=== PATIENT | male | born 1980 | race Hispanic/Latino ===

== ENCOUNTER → 2018-09-28 | Day surgery (SDC) | payer MEDICARE ==
[~2018-09-28] MED LIST: FENTANYL CITRATE/PF 100MCG/2 ML INJ ONE; MIDAZOLAM HCL 2 MG/2 ML VIAL ONE; PROPOFOL IV EMULSION 10 MG/ML 50 ML VIAL ONE; TRIUMEQ PO
--- OUTSIDE RECORDS SUMMARY | 2018-09-28 06:39 | XMS REPORT ---
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 Conditions or Problems Problem Name Problem Code Onset Date Status Entry Date Provider Comment Standard Description Annotate Hyperglycemia 790.29 Active Raya Elias MD Other abnormal glucose Shortness of breath 786.05 Active Raya Elias MD Shortness of breath Rectal bleeding 569.3 Active Raya Elias MD Hemorrhage of rectum and anus Sexual activity, high risk V69.2 Active Raya Elias MD High-risk sexual behavior Wart 078.10 Active Raya Elias MD Viral warts, unspecified Genital herpes 054.10 Active Raya Elias MD Genital herpes, unspecified Immunization update V15.9 Active Raya Elias MD Unspecified personal history presenting hazards to health SCREENING EXAMINATION FOR VENEREAL DISEASE V74.5 Active 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[employer] Screening examination for venereal disease HIV infection 042 Active Raya Elias MD Human immunodeficiency virus [HIV] disease Syphilis 097.9 Active 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[employer]INEER-C Syphilis, unspecified Tobacco user 305.1 Active Raya Elias MD Tobacco use disorder Allergic rhinitis ICD-477.9 Inactive Raya Elias MD Anemia ICD-285.9 Inactive Raya Elias MD Thrombocytopenia ICD-287.5 Inactive Raya Elias MD Thrush ICD-112.0 Inactive Raya Elias MD AIDS 042 Inactive 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[employer]INEER-C Human immunodeficiency virus [HIV] disease Allergic rhinitis 477.9 Resolved Raya Elias MD Allergic rhinitis, cause unspecified Anemia 285.9 Resolved Raya Elias MD Anemia, unspecified Thrombocytopenia 287.5 Resolved Raya Elias MD Thrombocytopenia, unspecified Thrush 112.0 Resolved Raya Elias MD Candidiasis of mouth Medication List Medication Instructions Start Date Stop Date Generic Name NDC Status Provider Patient Instruction PROAIR HFA 108 (90 BASE) MCG/ACT INHALATION AEROSOL SOLUTION 2 puffs every 4 - 6 hours as needed ALBUTEROL SULFATE 53367061068 Active Raya Elias MD Active ANUSOL-HC 2.5 % RECTAL CREAM apply rectally twice a day/3 times a day as needed HYDROCORTISONE (RECTAL) 01021820874 Active Raya Elias MD Active TRIUMEQ 600-50-300 MG ORAL TABLET One tablet daily with or without food [id number] Active Raya Elias MD Active ALDARA 5 % EXTERNAL CREAM Apply to affected areas three times a week before bedtime and wash off in morning. ALDARA 5 % EXTERNAL CREAM 811534 IMIQUIMOD Inactive CETIRIZINE HCL 10 MG ORAL TABLET Take 1 tablet orally once daily as needed. CETIRIZINE HCL 10 MG ORAL TABLET 7119153 CETIRIZINE HCL Inactive DOXYCYCLINE HYCLATE 100 MG ORAL CAPSULE 1 by mouth twice a day DOXYCYCLINE HYCLATE 100 MG ORAL CAPSULE 7230045 DOXYCYCLINE HYCLATE Inactive MEPRON 750 MG/5ML ORAL SUSPENSION Take 10ml once daily MEPRON 750 MG/5ML ORAL SUSPENSION 332976 ATOVAQUONE Inactive VALTREX 1 GM ORAL TABLET 1 by mouth 2 times a day for 7 days VALTREX 1 GM ORAL TABLET 792002 VALACYCLOVIR HCL Inactive FLUCONAZOLE 200 MG ORAL TABLET 1 By Mouth once a day FLUCONAZOLE 200 MG ORAL TABLET 030666 FLUCONAZOLE Inactive AZITHROMYCIN 600 MG ORAL TABLET 2 tabs by mouth once per week AZITHROMYCIN 600 MG ORAL TABLET 048426 AZITHROMYCIN Inactive DOXYCYCLINE HYCLATE 100 MG ORAL CAPSULE Take one capsule by mouth every 12 hours DOXYCYCLINE HYCLATE 100 MG ORAL CAPSULE 4802845 DOXYCYCLINE HYCLATE Inactive BACTRIM DS 800-160 MG ORAL TABLET Take one tablet by mouth once daily BACTRIM DS 800-160 MG ORAL TABLET 240791 SULFAMETHOXAZOLE-TRIMETHOPRIM Inactive ALDARA 5 % EXTERNAL CREAM Apply to affected areas three times a week before bedtime and wash off in morning. IMIQUIMOD [id number] No Longer Active Raya Elias MD Active CETIRIZINE HCL 10 MG ORAL TABLET Take 1 tablet orally once daily as needed. CETIRIZINE HCL 60005141756 No Longer Active Raya Elias MD Active DOXYCYCLINE HYCLATE 100 MG ORAL CAPSULE 1 by mouth twice a day DOXYCYCLINE HYCLATE 57349744334 No Longer Active Raya Elias MD Active MEPRON 750 MG/5ML ORAL SUSPENSION Take 10ml once daily ATOVAQUONE 34596793010 No Longer Active Raya Elias MD Active VALTREX 1 GM ORAL TABLET 1 by mouth 2 times a day for 7 days VALACYCLOVIR HCL 95318077988 No Longer Active Raya Elias MD Active FLUCONAZOLE 200 MG ORAL TABLET 1 By Mouth once a day FLUCONAZOLE 31324839121 No Longer Active Raya Elias MD Active AZITHROMYCIN 600 MG ORAL TABLET 2 tabs by mouth once per week AZITHROMYCIN 41929273487 No Longer Active Raya Elias MD Active DOXYCYCLINE HYCLATE 100 MG ORAL CAPSULE Take one capsule by mouth every 12 hours DOXYCYCLINE HYCLATE 53234720896 No Longer Active Raya Elias MD Active BACTRIM DS 800-160 MG ORAL TABLET Take one tablet by mouth once daily SULFAMETHOXAZOLE-TRIMETHOPRIM 78268838113 No Longer Active Raya Elias MD Active Immunizations Vaccine Administration Date Value Standard Description influenza immunization (Flu Vax) has been administered given influenza virus vaccine, unspecified formulation PEDIATRIC PNEUMOCOCCAL VACCINE ([id number]) #1 given pneumococcal conjugate vaccine, 13 valent Tetanus toxoid, reduced diphtheria toxoid and acellular Pertussis vaccine, absorbed (TdaP) given given tetanus toxoid, reduced diphtheria toxoid, and acellular pertussis vaccine, adsorbed influenza immunization (Flu Vax) has been administered given influenza virus vaccine, unspecified formulation influenza immunization (Flu Vax) has been administered given influenza virus vaccine, unspecified formulation Vital Signs Date Name Value Unit Range Description blood pressure, diastolic 76 mm[Hg] BP saeed blood pressure, systolic 129 mm[Hg] BP sys height E&M 68 [in_us] Bdy height pulse rate E&M 62 /min Heart rate temperature E&M 98.2 [degF] Body temperature weight E&M 177 [lb_av] Weight Measured blood pressure, diastolic 81 mm[Hg] BP saeed blood pressure, systolic 129 mm[Hg] BP sys height E&M 68 [in_us] Bdy height pulse rate E&M 63 /min Heart rate temperature E&M 97.5 [degF] Body temperature weight E&M 173.38 [lb_av] Weight Measured Diagnostic Results Date Name Value Unit Range Description Lab Report: LIPID PANEL, STANDARD, COMPREHENSIVE METABOLIC PANEL, LYMPHO ... - Chemistry cholesterol, non-HDL, total 105 MG/DL (CALC) mg/dL <130 Lab Report: CBC With Differential/Platelet, Comp. Metabolic Panel (14), ... - Chemistry very low density lipoproteins 74 mg/dL 5-40 Lab Report: CD4/CD8 Ratio Profile, Comp. Metabolic Panel (14), Lipid Aranda ... - Chemistry hepatitis B surface antigen Negative Negative Lab Report: HIV 1 RNA, QUANTITATIVE REAL TIME PCR - Chemistry HIV-1 RNA (log 10) <1.30 DETECTED Log copies/mL NOT DETECTED Lab Report: CD4/CD8 Ratio Profile, Comp. Metabolic Panel (14), RNA, Real ... - Chemistry chloride, serum 104 mmol/L 96-106 Lab Report: CD4/CD8 Ratio Profile, Comp. Metabolic Panel (14), Lipid Aranda ... - Microbiology hepatitis A antibody, total Positive Negative Lab Report: CD4/CD8 Ratio Profile, Comp. Metabolic Panel (14), RNA, Real ... - Chemistry urea nitrogen, blood 16 mg/dL 6-20 Lab Report: COMPREHENSIVE METABOLIC PANEL, LYMPHOCYTE SUBSET PANEL 4, CB ... - Hematology Absolute Eosinophil count 162 {Cells}/uL 15-500 Lab Report: QUANTIFERON(R)-TB GOLD - Hematology Quantiferon Gold TB blood test for tuberculosis screening NEGATIVE NEGATIVE Lab Report: CBC With Differential/Platelet, Hemoglobin A1c - Hematology mean corpuscular hemoglobin concentration, RBC 32.0 G/DL % 31.5-35.7 erythrocyte (RBC) count 4.07 X10E6/UL 10*6/mm3 4.14-5.80 Lab Report: LIPID PANEL, STANDARD, COMPREHENSIVE METABOLIC PANEL, LYMPHO ... - Chemistry cholesterol/HDL ratio, serum, percent 3.7 (calc) <5.0 Lab Report: LIPID PANEL, STANDARD, COMPREHENSIVE METABOLIC PANEL, LYMPHO ... - Serology hepatitis C antibody, serum NON-REACTIVE NON-REACTIVE Lab Report: CD4/CD8 Ratio Profile, Comp. Metabolic Panel (14), RNA, Real ... - Chemistry absolute CD8 644 [id number] Lab Report: CBC With Differential/Platelet, Hemoglobin A1c - Chemistry Absolute Neutrophils 3.4 X10E3/UL 10*3/uL 1.4-7.0 Lab Report: COMPREHENSIVE METABOLIC PANEL, LYMPHOCYTE SUBSET PANEL 4, CB ... - Hematology mean platelet volume 11.1 fL 7.5-12.5 Lab Report: LIPID PANEL, STANDARD, COMPREHENSIVE METABOLIC PANEL, LYMPHO ... - Chemistry LDL cholesterol, serum 83 MG/DL (CALC) mg/dL Lab Report: CD4/CD8 Ratio Profile, Comp. Metabolic Panel (14), RNA, Real ... - Chemistry urea nitrogen/creatinine ratio, serum 16 9-20 Lab Report: CBC With Differential/Platelet, Hemoglobin A1c - Hematology mean corpuscular volume, RBC 78 fL 79-97 Lab Report: LIPID PANEL, STANDARD, COMPREHENSIVE METABOLIC PANEL, LYMPHO ... - Chemistry HDL cholesterol, serum 39 mg/dL >40 Lab Report: CBC With Differential/Platelet, Hemoglobin A1c - Hematology monocytes as percent of blood leukocytes 10 % Not Estab. Lab Report: CD4/CD8 Ratio Profile, Comp. Metabolic Panel (14), RNA, Real ... - Chemistry creatinine, serum 0.97 mg/dL 0.76-1.27 albumin/globulin ratio, serum 1.3 1.2-2.2 Lab Report: COMPREHENSIVE METABOLIC PANEL, LYMPHOCYTE SUBSET PANEL 4, CB ... - Hematology Absolute Monocyte count 685 {Cells}/uL 200-950 Lab Report: LIPID PANEL, STANDARD, COMPREHENSIVE METABOLIC PANEL, LYMPHO ... - Chemistry cholesterol, serum 144 mg/dL <200 Lab Report: CD4/CD8 Ratio Profile, Comp. Metabolic Panel (14), RNA, Real ... - Chemistry bilirubin, serum, total <0.2 mg/dL mg/dL 0.0-1.2 Lab Report: CBC With Differential/Platelet, Hemoglobin A1c - Hematology Eosinophil Absolute Count 0.1 X10E3/UL 10*3/uL 0.0-0.4 Lab Report: Chlamydia/GC Amplification - Lab chlamydia DNA probe Negative Negative Lab Report: CD4/CD8 Ratio Profile, Comp. Metabolic Panel (14), RNA, Real ... - Chemistry aspartate aminotransferase (SGOT), serum 12 U/L 0-40 Lab Report: CBC With Differential/Platelet, Hemoglobin A1c - Hematology red blood cell distribution width 16.6 % 12.3-15.4 Lab Report: HSV Culture and Typing - Microbiology HERPES SIMPLEX VIRUS IDENTIFIED (PT; XXX; QL; ) HSVN Lab Report: COMPREHENSIVE METABOLIC PANEL, LYMPHOCYTE SUBSET PANEL 4, CB ... - Chemistry globulins, serum, total 3.1 G/DL (CALC) g/dL 1.9-3.7 Lab Report: CBC With Differential/Platelet, Hemoglobin A1c - Hematology leukocyte count, blood 6.6 X10E3/UL 10*3/mm3 3.4-10.8 Lab Report: CD4/CD8 Ratio Profile, Comp. Metabolic Panel (14), RNA, Real ... - Chemistry potassium, serum 4.4 mmol/L 3.5-5.2 Lab Report: CBC With Differential/Platelet, Hemoglobin A1c - Chemistry immature granulocytes, percentage of total cells, blood 0 % Not Estab. Lab Report: CD4/CD8 Ratio Profile, Comp. Metabolic Panel (14), RNA, Real ... - Chemistry albumin, serum 3.9 g/dL 3.5-5.5 Lab Report: Ct/GC GLORIA, Rectal, Ct/GC GLORIA, Pharyngeal - Microbiology Neisseria gonorrhoeae, throat culture Negative Negative Lab Report: CBC With Differential/Platelet, Hemoglobin A1c - Hematology lymphocyte count, blood, automated 2.5 X10E3/UL 10*3/mm3 0.7-3.1 hematocrit, blood 31.6 % 37.5-51.0 Lab Report: Chlamydia/GC Amplification - Microbiology Neisseria gonorrhoeae DNA probe Negative Negative Lab Report: CD4/CD8 Ratio Profile, Comp. Metabolic Panel (14), RNA, Real ... - Chemistry sodium, serum 139 mmol/L 134-144 Lab Report: CBC With Differential/Platelet, Hemoglobin A1c - Hematology neutrophils as percent of blood leukocytes 52 % Not Estab. basophils as percent of blood leukocytes 0 % Not Estab. Lab Report: CD4/CD8 Ratio Profile, Comp. Metabolic Panel (14), RNA, Real ... - Serology HIV-1RNA, serum, by PCR, quantitative <20 copies/mL {Copies}/mL rapid plasma reagin antibody, serum 1:8 NonRea<1:1 Lab Report: CD4/CD8 Ratio Profile, Comp. Metabolic Panel (14), RNA, Real ... - Chemistry CD4/CD8 ratio 0.65 0.92-3.72 carbon dioxide, venous blood 22 mmol/L 20-29 Lab Report: COMPREHENSIVE METABOLIC PANEL, LYMPHOCYTE SUBSET PANEL 4, CB ... - Chemistry Absolute Neutrophil count 4112 {Cells}/uL 7559-4473 Lab Report: CD4/CD8 Ratio Profile, Comp. Metabolic Panel (14), Lipid Aranda ... - Serology hepatitis B core antibody, total Negative Negative Lab Report: LIPID PANEL, STANDARD, COMPREHENSIVE METABOLIC PANEL, LYMPHO ... - Chemistry triglyceride, serum, fasting 119 mg/dL <150 Lab Report: CD4/CD8 Ratio Profile, Comp. Metabolic Panel (14), RNA, Real ... - Chemistry calcium, serum 8.5 mg/dL 8.7-10.2 alanine aminotransferase (SGPT), serum 11 U/L 0-44 Lab Report: CBC With Differential/Platelet, Hemoglobin A1c - Hematology mean corpuscular hemoglobin, RBC 24.8 pg 26.6-33.0 Lab Report: CD4/CD8 Ratio Profile, Comp. Metabolic Panel (14), RNA, Real ... - Chemistry protein, total, serum 6.8 g/dL 6.0-8.5 Lab Report: CD4/CD8 Ratio Profile, Comp. Metabolic Panel (14), RNA, Real ... - Lab Treponema pallidum antibodies, by particle agglutination Positive Negative Lab Report: CD4/CD8 Ratio Profile, Comp. Metabolic Panel (14), RNA, Real ... - Chemistry alkaline phosphatase, serum 70 U/L 39-117 Lab Report: CD4/CD8 Ratio Profile, Comp. Metabolic Panel (14), RNA, Real ... - Hematology T-helper cells (CD4) as percent of blood lymphocytes 24.5 % 30.8-58.5 Lab Report: CBC With Differential/Platelet, Hemoglobin A1c - Hematology hemoglobin, blood 10.1 g/dL 13.0-17.7 Lab Report: CD4/CD8 Ratio Profile, Comp. Metabolic Panel (14), RNA, Real ... - Hematology T-suppressor cells (CD8) as percent of blood lymphocytes 37.9 % 12.0-35.5 Lab Report: CBC With Differential/Platelet, Hemoglobin A1c - Hematology lymphocytes as percent of blood leukocytes 37 % Not Estab. Lab Report: CBC With Differential/Platelet, Hemoglobin A1c - Chemistry hemoglobin A1C, blood, as % of total hemoglobin 5.5 % 4.8-5.6 Lab Report: COMPREHENSIVE METABOLIC PANEL, LYMPHOCYTE SUBSET PANEL 4, CB ... - Hematology eosinophils as percent of blood leukocytes 2.1 % Lab Report: CD4/CD8 Ratio Profile, Comp. Metabolic Panel (14), RNA, Real ... - Genetics/fertility eGFR if 115 mL/min/1.73m2 >59 Lab Report: CBC With Differential/Platelet, Hemoglobin A1c - Hematology basophil count, absolute 0.0 x10E3/uL 0.0-0.2 Lab Report: LIPID PANEL, STANDARD, COMPREHENSIVE METABOLIC PANEL, LYMPHO ... - Lab Hepatitis C Antibody, Signal to Cut-Off 0.08 <1.00 Lab Report: Ct/GC GLORIA, Rectal, Ct/GC GLORIA, Pharyngeal - Basic GC Rectum Negative Negative Lab Report: CD4/CD8 Ratio Profile, Comp. Metabolic Panel (14), RNA, Real ... - Chemistry globulin, serum 2.9 1.5-4.5 Estimated Glomerular Filtration Rate (calc) 99 mL/min/1.73m2 >59 Lab Report: COMPREHENSIVE METABOLIC PANEL, LYMPHOCYTE SUBSET PANEL 4, CB ... - Chemistry lymphocytes, absolute 2718 CELLS/UL 10*3/uL 850-3900 Lab Report: CD4/CD8 Ratio Profile, Comp. Metabolic Panel (14), Lipid Aranda ... - Serology hepatitis B surface antibody Reactive Lab Report: CBC With Differential/Platelet, Hemoglobin A1c - Hematology eosinophils as percent of blood leukocytes 1 % Not Estab. Lab Report: CD4/CD8 Ratio Profile, Comp. Metabolic Panel (14), RNA, Real ... - Chemistry blood glucose, random 158 mg/dL 65-99 Lab Report: COMPREHENSIVE METABOLIC PANEL, LYMPHOCYTE SUBSET PANEL 4, CB ... - Serology Treponema pallidum Ab, serum REACTIVE NON-REACTIVE Lab Report: CBC With Differential/Platelet, Hemoglobin A1c - Hematology monocyte count, blood, automated 0.7 X10E3/UL 10*3/uL 0.1-0.9 Lab Report: CD4/CD8 Ratio Profile, Comp. Metabolic Panel (14), RNA, Real ... 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 Detailed - [id number] Raya Elias MD CPT-11938 [facility] 10:47:08 CDT Est Patient Detailed - 47114 Raya Elias MD CPT-60079 [facility] 14:13:08 CDT Est Patient Detailed - 18417 Raya Elias MD CPT-49278 [facility] 11:07:41 CDT Est Patient Exp Problem - 30261 Raya Elias MD CPT-08828 [facility] 14:48:57 CDT Est Patient Problem Focus - 45225 Raya Elias MD CPT-60891 [facility] 08:23:47 CDT Est Patient Detailed - 27888 Raya Elias MD CPT-57106 [facility] 08:33:54 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 Est Patient Detailed - 05374 Raya Elias MD CPT-92049 [facility] 14:27:53 SEMI TRUCK DRIVER Est Patient Detailed - 78416 Raya Elias MD CPT-33975 [facility] 11:27:07 CDT Est Patient Detailed - 56281 Raya Elias MD CPT-97182 [facility] 08:49:53 CDT Est Patient Detailed - 99433 Raya Elias MD CPT-50040 [facility] 12:25:15 CDT Est Patient Detailed - 14414 Raya Elias MD CPT-07267 [facility] 15:15:06 CDT New Patient Detailed - 54098 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
--- OUTSIDE RECORDS SUMMARY | 2018-09-28 06:39 | XMS REPORT ---
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 Allergies, Adverse Reactions, Alerts Allergy Name Allergy Type Status Severity Reaction(s) Onset Date Inactive Date Treating Clinician Comments amoxicillin trihydrate DA Active SV 2018-08-04 00:00:00 potassium clavulanate DA Active SV 2018-08-04 00:00:00 amoxicillin trihydrate DA Active SV 2016-08-16 00:00:00 potassium clavulanate DA Active SV 2016-08-16 00:00:00 Medications This patient has no known medications. Results Test Description Test Time Test Comments Text Results Atomic Results Result Comments URINALYSIS COMPLETE 2018-08-04 20:45:00 UA COLOR (test code=COLU) YELLOW YELLOW UA APPEARANCE (test code=APPU) CLEAR CLEAR UA GLUCOSE DIPSTICK (test code=DGLUU) NEGATIVE mg/dL NEGATIVE UA BILIRUBIN DIPSTICK (test code=BILU) NEGATIVE mg/dL NEGATIVE UA KETONE DIPSTICK (test code=KETU) 5 (Trace) mg/dL NEGATIVE UA SPECIFIC GRAVITY (test code=SGU) 1.032 1.001-1.035 UA BLOOD DIPSTICK (test code=MOLLY) Negative NEGATIVE UA PH DIPSTICK (test code=BETTY) 5.0 5.0-8.0 UA PROTEIN DIPSTICK (test code=PROU) Negative mg/dL NEGATIVE UA UROBILINIOGEN DIPSTICK (test code=URO) 1 mg/dL (1+) mg/dL 0.0-0.2 UA NITRITE DIPSTICK (test code=CHOLO) NEGATIVE NEGATIVE UA LEUKOCYTE ESTERASE W REFLEX (test code=LEUUR) TRACE NEGATIVE UA WBC (test code=WBCU) 0-5 #/HPF 0-5 UA RBC (test code=RBCU) 0-2 #/HPF 0-5 Urine Source? Clean CatchBASIC METABOLIC [id number] 19:16:00* Test Item Value Reference Range Comments SODIUM (test code=NA) 142 mmol/L 136-145 POTASSIUM (test code=K) 3.8 mmol/L 3.5-5.1 CHLORIDE (test code=CL) 111.0 mmol/L 98-107 CARBON DIOXIDE (test code=CO2) 22.0 mmol/L 21-32 ANION GAP (test code=GAP) 12.8 10-20 GLUCOSE (test code=GLU) 112 mg/dL 74-106 BLOOD UREA NITROGEN (test code=BUN) 16 mg/dL 7-18 GLOMERULAR FILTRATION RATE (test code=GFR) > 60 mL/min >=60 Estimated GFR by using Modified MDRD formula.Chronic kidney disease is defined as either kidney damageor GFR <60 mL/min/1.73 m2 for >3 months. CREATININE (test code=CREAT) 1.20 mg/dL 0.7-1.3 BUN/CREATININE RATIO (test code=BUN/CREA) 13.8 10-20 CALCIUM (test code=CA) 8.4 mg/dL 8.5-10.1 HEPATIC FUNCTION [id number] 19:16:00* Test Item Value Reference Range Comments TOTAL PROTEIN (test code=PROT) 7.8 gram/dL 6.4-8.2 ALBUMIN (test code=ALB) 3.7 g/dL 3.4-5.0 GLOBULIN (test code=GLOB) 4.1 gram/dL 2.7-4.2 ALBUMIN/GLOBULIN RATIO (test code=A/G) 0.9 0.75-1.50 BILIRUBIN TOTAL (test code=BILT) 0.20 mg/dL 0.0-1.0 BILIRUBIN DIRECT (test code=BILD) 0.05 mg/dL 0.0-0.20 SGOT/AST (test code=AST) 22 IUnit/L 15-37 SGPT/ALT (test code=ALT) 34 IUnit/L 12-78 ALKALINE PHOSPHATASE TOTAL (test code=ALKP) 93 IUnit/L 45-117 Note change in reference range due to change in reagent. [id number] 19:16:00* Test Item Value Reference Range Comments LIPASE (test code=LIP) 114 U/L 73.0-393.0 BASIC METABOLIC [id number] 19:07:00* Test Item Value Reference Range Comments SODIUM (test code=NA) 142 mmol/L 136-145 POTASSIUM (test code=K) 3.8 mmol/L 3.5-5.1 CHLORIDE (test code=CL) 111.0 mmol/L 98-107 CARBON DIOXIDE (test code=CO2) mmol/L 21-32 ANION GAP (test code=GAP) 10-20 GLUCOSE (test code=GLU) mg/dL 74-106 BLOOD UREA NITROGEN (test code=BUN) mg/dL 7-18 GLOMERULAR FILTRATION RATE (test code=GFR) mL/min >=60 CREATININE (test code=CREAT) mg/dL 0.7-1.3 BUN/CREATININE RATIO (test code=BUN/CREA) 10-20 CALCIUM (test code=CA) mg/dL 8.5-10.1 HEPATIC FUNCTION [id number] 19:07:00* Test Item Value Reference Range Comments TOTAL PROTEIN (test code=PROT) gram/dL 6.4-8.2 ALBUMIN (test code=ALB) g/dL 3.4-5.0 GLOBULIN (test code=GLOB) gram/dL 2.7-4.2 ALBUMIN/GLOBULIN RATIO (test code=A/G) 0.75-1.50 BILIRUBIN TOTAL (test code=BILT) mg/dL 0.0-1.0 BILIRUBIN DIRECT (test code=BILD) mg/dL 0.0-0.20 SGOT/AST (test code=AST) IUnit/L 15-37 SGPT/ALT (test code=ALT) IUnit/L 12-78 ALKALINE PHOSPHATASE TOTAL (test code=ALKP) IUnit/L 45-117 [id number] 19:07:00* Test Item Value Reference Range Comments LIPASE (test code=LIP) U/L 73.0-393.0 CBC W/O [id number] 18:53:00* Test Item Value Reference Range Comments WHITE BLOOD CELL (test code=WBC) 8.3 K/mm3 4.5-12.5 RED BLOOD CELL (test code=RBC) 4.95 mill/mm3 4.0-5.8 HEMOGLOBIN (test code=HGB) 14.7 gram/dL 13.0-17.5 HEMATOCRIT (test code=HCT) 44.7 % 42.0-52.0 MEAN CELL VOLUME (test code=MCV) 90.3 fL 80-98 MEAN CELL HGB (test code=MCH) 29.7 picogram 27.0-33.0 MEAN CELL HGB CONCETRATION (test code=MCHC) 32.9 gram/dL 33.0-36.0 RED CELL DISTRIBUTION WIDTH (test code=RDW) 13.2 % 11.6-16.2 PLATELET COUNT (test code=PLT) 176 K/mm3 150-450 MEAN PLATELET VOLUME (test code=MPV) 10.2 fL 6.7-11.0 CBC W/O [id number] 18:52:00* Test Item Value Reference Range Comments WHITE BLOOD CELL (test code=WBC) K/mm3 4.5-12.5 RED BLOOD CELL (test code=RBC) mill/mm3 4.0-5.8 HEMOGLOBIN (test code=HGB) 14.7 gram/dL 13.0-17.5 HEMATOCRIT (test code=HCT) 44.7 % 42.0-52.0 MEAN CELL VOLUME (test code=MCV) fL 80-98 MEAN CELL HGB (test code=MCH) picogram 27.0-33.0 MEAN CELL HGB CONCETRATION (test code=MCHC) gram/dL 33.0-36.0 RED CELL DISTRIBUTION WIDTH (test code=RDW) % 11.6-16.2 PLATELET COUNT (test code=PLT) K/mm3 150-450 MEAN PLATELET VOLUME (test code=MPV) fL 6.7-11.0
[2018-09-28 10:00] VITALS: BP 109/72
== END | disposition home or self-care (01) ==
LOC: OR 06:37
PROVIDERS: ATTEND Internal Medicine Gastroenterology
DX: K92.1 Melena (principal); K64.8 Other hemorrhoids; Z71.3 Dietary counseling and surveillance; E66.3 Overweight; Z21 Asymptomatic human immunodeficiency virus [HIV] infection status; J45.909 Unspecified asthma, uncomplicated; F17.200 Nicotine dependence, unspecified, uncomplicated; Z88.0 Allergy status to penicillin; Z68.27 Body mass index [BMI] 27.0-27.9, adult
CPT/HCPCS: 45378; J2250; J2704